=== PATIENT | female | born 1995 | race Caucasian/White ===

== ENCOUNTER 2018-07-21 20:50 | Emergency (ER) | payer BC ==
[2018-07-21] MEDS ORDERED: Acetaminophen/oxyCODONE 325-5 MG Tab PO ONE (20:51)
[2018-07-21 22:47] LABS: ANION GAP 15.7; CHLORIDE,CL 100 mmol/L (101-111); SODIUM,NA 136 mmol/L (135-145)
[2018-07-21] MEDS ORDERED: Ondansetron 4 MG/2 ML SDV IV ONE (23:34)
[2018-07-21] MEDS ORDERED: Sodium Chloride 0.9% 1,000 ML IV ONE (23:34)
[2018-07-21] MEDS ORDERED: HYDROmorphone 1 MG/ML Syringe IVPUSH ONE (23:34)
[2018-07-21] MEDS ORDERED: Iopamidol 612 MG/ML 100 ML Bottle IVPUSH ONE (23:36)
[2018-07-21] MEDS ORDERED: Piperacillin/Tazobactam 3.375 GM in Sodium Chloride 0.9% 100 ML IV ONE (23:40)
--- NOTE | 2018-07-22 00:50 | EDM.PDOC ---
"ED HPI GENERAL MEDICAL PROBLEM - General Chief Complaint: General Stated Complaint: Toxic shock syndrome? Time Seen by Provider: 07/21/18 22:30 Source of Information: Reports: Patient History Limitations: Reports: No Limitations - History of Present Illness INITIAL COMMENTS - FREE TEXT/NARRATIVE: ED with c/o RLQ pain felt chilled, voices concern of Toxic Shock. Had tampon in approximately 16 hours, flow light, just finishing menses. Nausea no vomiting. No urinary complaints. Denies risk of . Treatments CATCHER FILTER TIP: Reports: Acetaminophen Right Lower Abdomen Pain Score (Numeric/FACES): 8 - Related Data Allergies Allergy/AdvReac Type Severity Reaction Status Date / Time No Known Allergies Allergy Verified 07/21/18 22:34 Home Meds: Home Meds . 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 Denies: Distension : Reports: Flank Pain. Denies: Discharge, Frequency, Hematuria, Irregular Menses Musculoskeletal: Reports: No Symptoms Skin: Reports: No Symptoms Neurological: Reports: No Symptoms Psychiatric: Reports: No Symptoms ED EXAM, GENERAL - Physical Exam Exam: See Below Exam Limited By: No Limitations General Appearance: Alert, Moderate Distress Eye Exam: Bilateral Eye: PERRL Ears: Normal External Exam, Normal TMs Nose: Normal Inspection Throat/Mouth: Normal Inspection Head: Atraumatic, Normocephalic Neck: Normal Inspection, Full Range of Motion Respiratory/Chest: No Respiratory Distress, Lungs Clear, Normal Breath Sounds Cardiovascular: Normal Peripheral Pulses, Regular Rate, Rhythm GI/Abdominal: Normal Bowel Sounds, Soft, Tender. No: Guarding (Female) Exam: Normal External Exam, Normal Speculum Exam, Adnexal Tenderness Back Exam: Normal Inspection, Full Range of Motion Extremities: Normal Inspection, Normal Range of Motion Neurological: Alert, Oriented, Normal Cognition, Normal Gait Psychiatric: Normal Affect, Normal Mood Skin Exam: Warm, Dry, Intact, Normal Color Course - Vital Signs Last Recorded V/S: Last Vital Signs Temp 98.8 F 07/22/18 01:40 Pulse 74 07/22/18 01:01 Resp 19 07/22/18 01:01 BP 105/51 L 07/22/18 01:01 Pulse Ox 97 07/22/18 01:01 - Orders/Labs/Meds Orders: Active Orders 24 hr Category Date Time Status CULTURE BLOOD [BC] Stat Lab 07/21/18 23:49 Ordered CULTURE BLOOD [BC] Stat Lab 07/21/18 23:49 Ordered Blood Culture x2 Reflex Set [OM.PC] Stat Oth 07/21/18 23:49 Ordered Labs: Laboratory Tests 07/21/18 07/21/18 07/21/18 Range/Units 22:14 22:20 22:20 WBC 17.1 H (5.0-10.0) 10^3/uL RBC 4.56 (4.2-5.4) 10^6/uL Hgb 14.0 (12.0-16.0) g/dL Hct 40.8 (37.0-47.0) % MCV 89.5 (80-100) fL MCH 30.7 (27.0-34.0) pg MCHC 34.3 (33.0-35.0) g/dL Plt Count 253 (150-450) 10^3/uL Neut % (Auto) 84.9 H (42.2-75.2) % Lymph % (Auto) 7.1 L (20.5-50.1) % [place] % (Auto) 7.2 (2-8) % Eos % (Auto) 0.6 L (1.0-3.0) % Baso % (Auto) 0.2 (0.0-1.0) % Sodium 136 (135-145) mmol/L Potassium 3.7 (3.6-5.0) mmol/L Chloride 100 L (101-111) mmol/L Carbon Dioxide 24.0 (21.0-31.0) mmol/L Anion Gap 15.7 BUN 11 (7-18) mg/dL Creatinine 0.7 (0.6-1.3) mg/dL Est Cr Clr Drug Dosing 114.40 mL/min Estimated GFR (MDRD) > 60 BUN/Creatinine Ratio 15.71 Glucose 110 H (74-105) mg/dL Calcium 8.8 (8.4-10.2) mg/dl Total Bilirubin 1.1 H (0.2-1.0) mg/dL AST 24 (10-42) IU/L ALT 15 (10-60) IU/L Alkaline Phosphatase 84 (42-121) IU/L C-Reactive Protein (0.0-1.3) mg/dL Total Protein 6.9 (6.7-8.2) g/dl Albumin 3.9 (3.2-5.5) g/dl Globulin 3.0 Albumin/Globulin Ratio 1.30 HCG, Qual Negative Urine Color Yellow (YELLOW) Urine Appearance Turbid (CLEAR) Urine pH 5.5 (5.0-9.0) Ur Specific [place] >= 1.030 (1.005-1.030) Urine Protein Trace H (NEGATIVE) Urine Glucose (UA) Negative (NEGATIVE) Urine Ketones Negative (NEGATIVE) Urine Occult Blood Small H (NEGATIVE) Urine Nitrite Negative (NEGATIVE) Urine Bilirubin Negative (NEGATIVE) Urine Urobilinogen 0.2 (0.2-1.0) mg/dL Ur Leukocyte Esterase Negative (NEGATIVE) Urine RBC 0-5 /HPF Urine WBC 0-5 (0-5/HPF) /HPF Ur Epithelial Cells Many H /HPF Urine Bacteria Many H (0-FEW/HPF) /HPF Urine Mucus Many H /LPF Urinalysis Comment 07/21/18 Range/Units 22:20 WBC (5.0-10.0) 10^3/uL RBC (4.2-5.4) 10^6/uL Hgb (12.0-16.0) g/dL Hct (37.0-47.0) % MCV (80-100) fL MCH (27.0-34.0) pg MCHC (33.0-35.0) g/dL Plt Count (150-450) 10^3/uL Neut % (Auto) (42.2-75.2) % Lymph % (Auto) (20.5-50.1) % [place] % (Auto) (2-8) % Eos % (Auto) (1.0-3.0) % Baso % (Auto) (0.0-1.0) % Sodium (135-145) mmol/L Potassium (3.6-5.0) mmol/L Chloride (101-111) mmol/L Carbon Dioxide (21.0-31.0) mmol/L Anion Gap BUN (7-18) mg/dL Creatinine (0.6-1.3) mg/dL Est Cr Clr Drug Dosing mL/min Estimated GFR (MDRD) BUN/Creatinine Ratio Glucose (74-105) mg/dL Calcium (8.4-10.2) mg/dl Total Bilirubin (0.2-1.0) mg/dL AST (10-42) IU/L ALT (10-60) IU/L Alkaline Phosphatase (42-121) IU/L C-Reactive Protein 1.8 H (0.0-1.3) mg/dL Total Protein (6.7-8.2) g/dl Albumin (3.2-5.5) g/dl Globulin Albumin/Globulin Ratio HCG, Qual Urine Color (YELLOW) Urine Appearance (CLEAR) Urine pH (5.0-9.0) Ur Specific [place] (1.005-1.030) Urine Protein (NEGATIVE) Urine Glucose (UA) (NEGATIVE) Urine Ketones (NEGATIVE) Urine Occult Blood (NEGATIVE) Urine Nitrite (NEGATIVE) Urine Bilirubin (NEGATIVE) Urine Urobilinogen (0.2-1.0) mg/dL Ur Leukocyte Esterase (NEGATIVE) Urine RBC /HPF Urine WBC (0-5/HPF) /HPF Ur Epithelial Cells /HPF Urine Bacteria (0-FEW/HPF) /HPF Urine Mucus /LPF Urinalysis Comment Meds: Medications Discontinued Medications Generic Name Dose Route Start Last Admin Trade Name Freq PRN Reason Stop Dose Admin Hydromorphone HCl 1 mg 07/21/18 23:34 07/21/18 23:40 Dilaudid IVPUSH 07/21/18 23:35 1 mg ONETIME ONE Administration Hydromorphone HCl 1 mg 07/22/18 02:19 07/22/18 02:31 Dilaudid IM 07/22/18 02:20 1 mg ONETIME ONE Administration Sodium Chloride 1,000 mls @ 999 mls/hr 07/21/18 23:34 07/21/18 23:39 Normal Saline IV 07/22/18 00:34 999 mls/hr .BOLUS ONE Administration Piperacillin Sod/Tazobactam 100 mls @ 200 mls/hr 07/21/18 23:40 07/22/18 00: 03 Sod 3.375 gm/ Sodium Chloride IV 07/22/18 00:09 200 mls/hr ONETIME ONE Administration Iopamidol 100 ml 07/21/18 23:36 07/22/18 00:00 Isovue-300 (61%) IVPUSH 07/21/18 23:37 100 ml ONETIME ONE Administration Ketorolac Tromethamine 30 mg 07/22/18 00:54 07/22/18 01:00 Toradol IVPUSH 07/22/18 00:55 30 mg ONETIME ONE Administration Ondansetron HCl 4 mg 07/21/18 23:34 07/21/18 23:39 Zofran IV 07/21/18 23:35 4 mg ONETIME ONE Administration Oxycodone/Acetaminophen Confirm 07/22/18 02:23 07/22/18 02:30 Percocet 325-5 Mg Administered 07/22/18 02:24 Not Given Dose 1 tab .ROUTE .[facility] ONE - Radiology Interpretation Free Text/Narrative:: Name: SIVA LARSEN Age: 23Years F Date: 07/21/2018 SSN: -- : [id number] Study: CT ABDOMEN/PELVIS W Requesting Physician: IVET ALVAREZ Images: 254 Addl Studies: Provided Clinical History: Contrast: With Contrast Medium: isovue 300 Contrast Amount: 100 mL Contrast Method: LAC Page 1 of 2 EXAM: CT Abdomen and Pelvis With Contrast EXAM DATE/TIME: 07/21/2018 11:49 PM CLINICAL HISTORY: 23 years old, female; Pain; Abdominal pain; Tenderness; Right lower quadrant ( rlq); Patient HX: Rlq pain TECHNIQUE: Axial computed tomography images of the abdomen and pelvis with intravenous contrast. All CT scans at this facility use at least one of these dose optimization techniques: automated exposure control; mA and/or kV adjustment per patient size (includes targeted exams where dose is matched to clinical indication); or iterative reconstruction. Coronal and sagittal reformatted images were created and reviewed. CONTRAST: Contrast Material: 100 ml of isovue 300; Contrast Route: LAC COMPARISON: No relevant prior studies available. FINDINGS: Lower thorax: No acute findings. ABDOMEN: Liver: Normal. No mass. Gallbladder and bile ducts: Normal. No calcified stones. No ductal dilation. Pancreas: Normal. No ductal dilation. SIVA LARSEN | Final Radiology Report CONFIDENTIALITY STATEMENT This report is intended only for use by the referring physician, and only in accordance with law. If you received this in error, call [phone]. Page 2 of 2 Spleen: Normal. No splenomegaly. Adrenals: Normal. No mass. Kidneys and ureters: Normal. No hydronephrosis. Stomach and bowel: Normal. No obstruction. No mucosal thickening. Appendix: Normal appendix right lower quadrant PELVIS: Bladder: Unremarkable as visualized. Reproductive: Unremarkable as visualized. ABDOMEN and PELVIS: Intraperitoneal space: Normal. No free air. Small amount of significant fluid collection. Bones/joints: No acute fracture. No dislocation. Soft tissues: Unremarkable. Vasculature: Normal. No abdominal aortic aneurysm. Lymph nodes: Normal. No enlarged lymph nodes. IMPRESSION: Normal appendix right lower quadrant Small amount of free fluid in the cul-de-sac suggestive of a recently ruptured ovarian cyst. No current ovarian cyst demonstrated Thank you for allowing us to participate in the care of your patient. Dictated and Authenticated by: Tristan Zacarias MD 07/22/2018 12:20 AM Central Time ([place] & [place]) Departure - Departure Time of Disposition: 00:47 Disposition: Home, Self-Care 01 Condition: Good Clinical Impression: Rupture of follicular cyst of ovary, Toxic shock - Discharge Information *PRESCRIPTION DRUG MONITORING PROGRAM REVIEWED*: No *COPY OF PRESCRIPTION DRUG MONITORING REPORT IN PATIENT LACY: No Instructions: Ovarian Cyst, [id number], Toxic Shock Syndrome, Adult Forms: ED Department Discharge Additional Instructions: rest, no lifting 48 hours, urgent follow up increase fever, vomiting, doxycycline 100mg one twice daily for one week clinic follow up as needed ibuprofen 600mg every 6 hours as needed for discomfort #20 percocet 5/325 one every 6 hours as needed for severe pain #8 - My Orders Last 24 Hours: My Active Orders 07/21/18 23:49 CULTURE BLOOD [BC] Stat CULTURE BLOOD [BC] Stat Blood Culture x2 Reflex Set [OM.PC] Stat - Assessment/Plan Last 24 Hours: My Active Orders 07/21/18 23:49 CULTURE BLOOD [BC] Stat CULTURE BLOOD [BC] Stat Blood Culture x2 Reflex Set [OM.PC] Stat"
[2018-07-22] MEDS ORDERED: Ketorolac 30 MG/ML SDV IVPUSH ONE (00:54)
[2018-07-22] MEDS ORDERED: HYDROmorphone 1 MG/ML Syringe IVPUSH ONE (02:16)
[2018-07-22] MEDS ORDERED: HYDROmorphone 1 MG/ML Syringe IM ONE (02:19)
[2018-07-22] MEDS ORDERED: Acetaminophen/oxyCODONE 325-5 MG Tab ONE (02:23)
== END 2018-07-22 02:45 | disposition home or self-care (01) ==
LOC: DL.ED 20:50
DX: A48.3 Toxic shock syndrome (principal); N83.209 Unspecified ovarian cyst, unspecified side; F17.210 Nicotine dependence, cigarettes, uncomplicated
CPT/HCPCS: 36415; 74177; 80053; 81001; 84703; 85025; 86140; 87210; 96365; 96368; 96375; 96376; 99284; A9270-GY; J1170; J1885; J2405; J2543; J7030; J7050; Q9967

== ENCOUNTER 2020-04-07 19:02 | Emergency (ER) | payer BC, MEDICAID ==
[2020-04-07 20:51] LABS: ACETAMINOPHEN 0 ug/mL (10-30 (Therapeutic))
--- NOTE | 2020-04-08 03:44 | PCM.SN.2 ---
- Free Text/Narrative Note: Patient request to leave, does not want to be seen. Reports that she is feeling fine and did not take medication with intent to harm . Normally take 3 Clonazepam daily and does not feel any different now. AMA form completed by patient . Alert speech clear gait steady upon exit from ED.
== END 2020-04-07 20:46 | disposition left against medical advice (07) ==
LOC: DL.ED 19:02
DX: Z53.21 Procedure and treatment not carried out due to patient leaving prior to being seen by health care provider (principal)
CPT/HCPCS: 36415; 80305-QW; 80307; 81001; 81025; 87086